=== PATIENT | female | born 1980 | race Hispanic/Latino ===

== ENCOUNTER 2019-03-31 11:53 | Emergency (ER) | payer MEDICARE ==
[2019-03-31 12:24] LABS: Basophils % (Auto) 0.6 % (0.0-1.8); Eosinophils # (Auto) 0.1 K/mm3 (0.0-0.4); Eosinophils % (Auto) 1.9 % (0.0-4.3); Hematocrit 33.2 % (30.3-42.9); Hemoglobin 10.7 gm/dl (10.1-14.3); Lymphocytes # (Auto) 2.2 K/mm3 (1.2-5.4); Lymphocytes % (Auto) 31.6 % (13.4-35.0); Mean Corpuscular HGB Conc 32 % (30-34); Monocytes # (Auto) 0.5 K/mm3 (0.0-0.8); Monocytes % (Auto) 7.2 % (0.0-7.3); Platelet Count 189 K/mm3 (140-440); Red Blood Count 4.76 M/mm3 (3.65-5.03); Red Cell Distribution Width 18.6 % (13.2-15.2)
[2019-03-31 12:33] LABS: Bilirubin,Urine NEG (Negative); Blood,Urine NEG (Negative); Color,Urine Straw (Yellow); Mucus,Urine FEW /HPF; Protein,Urine <15 mg/dL mg/dL (Negative); Urobilinogen,Urine < 2.0 mg/dL (<2.0); WBC,Urine < 1.0 /HPF (0.0-6.0)
[2019-03-31 12:34] LABS: Mean Corpuscular Volume 70 fl (79-97)
--- NOTE | 2019-03-31 12:37 | Emergency Department Report ---
HPI - General Chief Complaint: Abdominal Pain Time Seen by Provider: 03/31/19 12:23 - HPI HPI: Room 17 The patient is 39-year-old female presenting with chief complaint of no movement. The patient is currently at [facility] and states she is approximately 12 weeks gestational age. The patient states she has not felt baby move the past 2 days. Patient complains some pain in the right groin but denies vaginal bleeding Location: [See above] Duration: [See above] Quality: [See above] Severity: [See above] Modifying factors: [see above] Context: [see above] Mode of transportation: [not driving] ED Past Medical Hx - Past Medical History Previous Medical History?: Yes Hx Asthma: Yes Additional medical history: ptsd - Surgical History Past Surgical History?: Yes Additional Surgical History: abd fibroids - Family History Family history: no significant - Social History Smoking Status: Current Every Day Smoker Substance Use Type: Cocaine, Marijuana ED Review of Systems ROS: Stated complaint: POSS 5-12 WKS Other details as noted in HPI Constitutional: no symptoms reported Eyes: denies: eye pain ENT: denies: throat pain Respiratory: no symptoms reported Cardiovascular: denies: chest pain Endocrine: no symptoms reported Gastrointestinal: abdominal pain Genitourinary: denies: abnormal menses Musculoskeletal: denies: back pain Neurological: denies: headache Physical Exam - Physical Exam Vital Signs: Vital Signs 03/31/19 12:26 Temperature 98.6 F Pulse Rate 87 Respiratory 17 Rate Blood Pressure 106/69 [Right] O2 Sat by Pulse 100 Oximetry Physical Exam: GENERAL: The patient is well-developed well-nourished female lying on stretcher not appearing to be in acute distress. [] HEENT: Normocephalic. Atraumatic. Extraocular motions are intact. Patient has moist mucous membranes. NECK: Supple. Trachea midline CHEST/LUNGS: Clear to auscultation. There is no respiratory distress noted. HEART/CARDIOVASCULAR: Regular. There is no tachycardia. There is no gallop rub or murmur. ABDOMEN: Abdomen is soft, nontender. Patient has normal bowel sounds. SKIN: There is no rash. There is no edema. There is no diaphoresis. NEURO: The patient is awake, alert, and oriented. The patient is cooperative. The patient has normal speech MUSCULOSKELETAL: There is no evidence of acute injury. ED Course Vital Signs 03/31/19 12:26 Temperature 98.6 F Pulse Rate 87 Respiratory 17 Rate Blood Pressure 106/69 [Right] O2 Sat by Pulse 100 Oximetry ED Medical Decision Making - Lab Data Result diagrams: 03/31/19 12:14 03/31/19 12:14 Laboratory Tests 03/31/19 03/31/19 03/31/19 12:10 12:14 12:14 WBC 7.0 RBC 4.76 Hgb 10.7 Hct 33.2 MCV 70 L MCH 23 L MCHC 32 RDW 18.6 H Plt Count 189 Lymph % (Auto) 31.6 Wy[place] % (Auto) 7.2 Eos % (Auto) 1.9 Baso % (Auto) 0.6 Lymph # 2.2 Wythe # 0.5 Eos # 0.1 Baso # 0.0 Seg Neutrophils % 58.7 Seg Neutrophils # 4.1 Sodium 136 L Potassium 3.9 Chloride 100.9 Carbon Dioxide 25 Anion Gap 14 BUN 8 Creatinine 0.6 L Estimated GFR > 60 BUN/Creatinine Ratio 13 Glucose 78 Calcium 9.0 Total Bilirubin 0.20 AST 19 ALT 11 Alkaline Phosphatase 58 Total Protein 7.0 Albumin 3.7 L Albumin/Globulin Ratio 1.1 HCG, Qual HCG, Quant Urine Color Straw Urine Turbidity Clear Urine pH 7.0 Ur Specific Joshua 1.006 Urine Protein <15 mg/dl Urine Glucose (UA) Neg Urine Ketones Neg Urine Blood Neg Urine Nitrite Neg Urine Bilirubin Neg Urine Urobilinogen < 2.0 Ur Leukocyte Esterase Mod Urine WBC (Auto) < 1.0 Urine RBC (Auto) 3.0 U Epithel Cells (Auto) 3.0 Urine Mucus Few 03/31/19 03/31/19 12:14 12:14 WBC RBC Hgb Hct MCV MCH MCHC RDW Plt Count Lymph % (Auto) Wythe % (Auto) Eos % (Auto) Baso % (Auto) Lymph # Wythe # Eos # Baso # Seg Neutrophils % Seg Neutrophils # Sodium Potassium Chloride Carbon Dioxide Anion Gap BUN Creatinine Estimated GFR BUN/Creatinine Ratio Glucose Calcium Total Bilirubin AST ALT Alkaline Phosphatase Total Protein Albumin Albumin/Globulin Ratio HCG, Qual Positive HCG, Quant 71291 H Urine Color Urine Turbidity Urine pH Ur Specific Joshua Urine Protein Urine Glucose (UA) Urine Ketones Urine Blood Urine Nitrite Urine Bilirubin Urine Urobilinogen Ur Leukocyte Esterase Urine WBC (Auto) Urine RBC (Auto) U Epithel Cells (Auto) Urine Mucus - Radiology Data Radiology results: report reviewed (pelvic ultrasound), image reviewed (pelvic ultrasound) [facility] [address] [place] [address] Ultrasound Report Signed Patient: PALMA MCBRIDE MR#: [id number] 43 : 1980 Acct:[id number] Age/Sex: 39 / F ADM Date: 03/31/19 Loc: ED Attending Dr: Ordering Physician: MARY CHOWDHURY MD Date of Service: 03/31/19 Procedure(s): US OB >= 14 weeks Fetus Accession Number(s): [id number] cc: MARY WATKINS MD PROCEDURE: US OB >= 14 WEEKS FETUS TECHNIQUE: Ultrasound obstetrical transabdominal HISTORY: no movement felt COMPARISONS: FINDINGS: Single live intrauterine gestation present cardiac activity identified with heart rate of 1 61 bpm Cervical length 4.4 cm Placenta is anterior biometric measurements were obtained Biparietal diameter 14 weeks 0 days Head circumference 14 weeks 1 day. Abdominal circumference 14 weeks 1 day Femur length 13 weeks 3 days Based on today's exam, positive estimated gestational age 14 weeks 0 days with estimated date of delivery September 29, 2019 Estimated weight today 1 lb. 3 oz. 84 g Note is made of a 7.4 x 4.0 x 5.8 cm uterine fibroid IMPRESSION: Single live intrauterine gestation estimated at 14 weeks 0 days. This document is electronically signed by Adonay Ruiz MD., March 31 2019 05:40:30 PM ET Transcribed By: IRINEO Dictated By: ALBA RUIZ MD Electronically Authenticated By: ALBA RUIZ MD Signed Date/Time: 03/31/191741 DD/ 1644 TD/TT: 03/31/19 1657 - Differential Diagnosis demise, threatened , , Critical care attestation.: If time is entered above; I have spent that time in minutes in the direct care of this critically ill patient, excluding procedure time. ED Disposition Clinical Impression: Decreased movement, Disposition: DC/TX-65 PSY HOSP/PSY UNIT Is pt being admited?: No Does the pt Need Aspirin: No Condition: Stable Instructions: Abdominal Pain (ED) Additional Instructions: Return to the emergency department immediately should you develop worsening symptoms, fever, inability to tolerate food or liquid or any other concerns. Referrals: [facility]NY [facility] MD DAISY [Primary Care Provider] - 3-5 Days ALMAZ REES MD [Staff Physician] - 3-5 Days Time of Disposition: 18:27
[2019-03-31 12:49] LABS: Alanine Aminotransferase 11 units/L (7-56); Albumin 3.7 g/dL (3.9-5); BUN/Creatinine Ratio 13; Blood Urea Nitrogen 8 mg/dL (7-17); Hemolysis Index 3
--- NOTE | 2019-03-31 17:42 | Ultrasound Report ---
PROCEDURE: US OB >= 14 WEEKS FETUS TECHNIQUE: Ultrasound obstetrical transabdominal HISTORY: no movement felt COMPARISONS: FINDINGS: Single live intrauterine gestation present cardiac activity identified with heart rate of 1 61 bpm Cervical length 4.4 cm Placenta is anterior biometric measurements were obtained Biparietal diameter 14 weeks 0 days Head circumference 14 weeks 1 day. Abdominal circumference 14 weeks 1 day Femur length 13 weeks 3 days Based on today's exam, positive estimated gestational age 14 weeks 0 days with estimated date of deli very September 29, 2019 Estimated weight today 1 lb. 3 oz. 84 g Note is made of a 7.4 x 4.0 x 5.8 cm uterine fibroid IMPRESSION: Single live intrauterine gestation estimated at 14 weeks 0 days. This document is electronically signed by Adonay Portillo MD., March 31 2019 05:40:30 PM ET
[2019-03-31 18:29] VITALS: BP 117/65
== END 2019-03-31 18:58 ==
LOC: EEVIPCON 11:53 → ED 11:53
DX: O36.8190 Decreased fetal movements, unspecified trimester, not applicable or unspecified (principal); O99.511 Diseases of the respiratory system complicating pregnancy, first trimester; J45.909 Unspecified asthma, uncomplicated; O99.341 Other mental disorders complicating pregnancy, first trimester; F43.10 Post-traumatic stress disorder, unspecified; O99.331 Smoking (tobacco) complicating pregnancy, first trimester; F12.10 Cannabis abuse, uncomplicated; F14.10 Cocaine abuse, uncomplicated; Z3A.14 14 weeks gestation of pregnancy
CPT/HCPCS: 36415; 76805; 80053; 81001; 84702; 84703; 85025; 99284

== ENCOUNTER 2019-04-07 04:07 | Emergency (ER) | payer MEDICARE ==
--- NOTE | 2019-04-07 05:31 | Emergency Department Report ---
<WILLIAM EWING - Last Filed: 04/07/19 05:29> ED HPI - General Chief complaint: Abdominal Pain Stated complaint: VAGINAL BLEEDING/ABD PAIN Time Seen by Provider: 04/07/19 04:39 Source: patient, EMS Mode of arrival: Stretcher Limitations: No Limitations - History of Present Illness Initial comments: Patient is a 39-year-old female who is approximately 12 weeks who is presenting with vaginal bleeding. Patient states yesterday she started having some light spotting which is progressed to light bleeding. Patient states is no clots present with the bleeding. The patient has some crampy suprapubic abdominal discomfort. She denies dysuria or vaginal discharge. - Related Data Previous Rx's Medication Instructions Recorded Last Taken Type Gina Root [Gina] 250 mg PO QID PRN #30 capsule 04/07/19 Unknown Rx Multivitamin with Folic Acid [[facility]vs 400 mcg PO QDAY #30 tablet 04/07/19 Unknown Rx One Daily Essential Tablet] Vit-Fe Fumar-FA [ 1 tab PO QDAY #30 tablet 04/07/19 Unknown Rx Vitamin] Allergies Allergy/AdvReac Type Severity Reaction Status Date / Time divalproex sodium Allergy Unknown Verified 04/07/19 04:42 [From Depakote] haloperidol [From Haldol] Allergy Unknown Verified 04/07/19 04:42 hydroxyzine [From Vistaril] Allergy Unknown Verified 04/07/19 04:42 lorazepam [From Ativan] Allergy Unknown Verified 04/07/19 04:42 sertraline [From Zoloft] Allergy Unknown Verified 04/07/19 04:42 ED Review of Systems Comment: All other systems reviewed and negative ED Past Medical Hx - Past Medical History Hx Asthma: Yes Additional medical history: ptsd - Surgical History Additional Surgical History: abd fibroids - Social History Smoking Status: Current Every Day Smoker Substance Use Type: None - Medications Home Medications: Home Medications Medication Instructions Recorded Confirmed Last Taken Type Gina Root [Gina] 250 mg PO QID PRN #30 capsule 04/07/19 Unknown Rx Multivitamin with Folic Acid [[facility] 400 mcg PO QDAY #30 tablet 04/07/19 Unknown Rx One Daily Essential Tablet] Vit-Fe Fumar-FA [ 1 tab PO QDAY #30 tablet 04/07/19 Unknown Rx Vitamin] ED Physical Exam - General Limitations: No Limitations General appearance: alert, in no apparent distress - Head Head exam: Present: atraumatic, normocephalic - Eye Eye exam: Present: normal appearance - ENT ENT exam: Present: mucous membranes moist - Neck Neck exam: Present: normal inspection - Respiratory Respiratory exam: Present: normal lung sounds bilaterally. Absent: respiratory distress, wheezes, rales, rhonchi - Cardiovascular Cardiovascular Exam: Present: regular rate, normal rhythm. Absent: systolic murmur, diastolic murmur, rubs, gallop - GI/Abdominal GI/Abdominal exam: Present: soft, normal bowel sounds. Absent: distended, tenderness, guarding, rebound, rigid - Extremities Exam Extremities exam: Present: normal inspection - Back Exam Back exam: Present: normal inspection - Neurological Exam Neurological exam: Present: alert, oriented X3 - Psychiatric Psychiatric exam: Present: normal affect, normal mood - Skin Skin exam: Present: warm, dry, intact, normal color. Absent: rash ED Course - Reevaluation(s) Reevaluation #1: 04/07/19 05:30 Patient to have a beta Quant Rh and ultrasound performed. Patient be signed out to the next physician. ED Disposition Clinical Impression: Fibroid Qualifiers: Weeks of gestation: 14 weeks Qualified Code(s): Z3A.14 - 14 weeks gestation of Disposition: DC/TX-65 PSY HOSP/PSY UNIT Condition: Stable Additional Instructions: Take the vitamins as directed. Take the nausea medications as directed. Take the acetaminophen medication as needed for pain. Follow up as soon as possible with an outpatient [facility] physician to initiate outpatient care. Rest, avoid heavy lifting, and avoid sexual activity until cleared by an [facility] physician. Please make certain to avoid any medications which are not considered safe or appropriate in . Return to the emergency room right away with new, worsening or different symptoms. Referrals: [facility] [Provider Group] - 3-5 Days [facility] [Provider Group] - 3-5 Days [facility] [Provider Group] - 3-5 Days <GARETH BERMUDEZ - Last Filed: 04/07/19 09:12> ED Review of Systems ROS: Stated complaint: VAGINAL BLEEDING/ABD PAIN Other details as noted in HPI ED Course Vital Signs 04/07/19 04:33 Temperature 98.3 F Pulse Rate 79 Respiratory 20 Rate Blood Pressure 128/73 O2 Sat by Pulse 98 Oximetry - Reevaluation(s) Reevaluation #2: 04/07/19 09:10 Patient walking around without difficulty. Does not appear to be in any acute distress. Initial urinalysis contaminated, repeat clean catch urinalysis not consistent with urinary infection, or bacteria. Rh+, ultrasound does not demonstrate any emergent condition. Patient may continue current outpatient therapy, and follow up with an [facility] physician. ED Medical Decision Making - Lab Data Vital Signs - 24 hr 04/07/19 04:33 Temperature 98.3 F Pulse Rate 79 Respiratory 20 Rate Blood Pressure 128/73 O2 Sat by Pulse 98 Oximetry Labs 04/07/19 04/07/19 04/07/19 04:55 04:55 07:21 HCG, Quant 90166 H Urine Color Yellow Urine Turbidity Cloudy Urine pH 7.0 Ur Specific Carson 1.009 Urine Protein <15 mg/dl Urine Glucose (UA) Neg Urine Ketones Neg Urine Blood Sm Urine Nitrite Neg Urine Bilirubin Neg Urine Urobilinogen < 2.0 Ur Leukocyte Esterase Lg Urine WBC (Auto) 45.0 H Urine RBC (Auto) 6.0 U Epithel Cells (Auto) 19.0 H Urine Bacteria (Auto) 2+ Blood Type O POSITIVE 04/07/19 08:18 HCG, Quant Urine Color Colorless Urine Turbidity Clear Urine pH 7.0 Ur Specific Carson 1.002 L Urine Protein <15 mg/dl Urine Glucose (UA) Neg Urine Ketones Neg Urine Blood Neg Urine Nitrite Neg Urine Bilirubin Neg Urine Urobilinogen < 2.0 Ur Leukocyte Esterase Tr Urine WBC (Auto) < 1.0 Urine RBC (Auto) 1.0 U Epithel Cells (Auto) 1.0 Urine Bacteria (Auto) Blood Type - Radiology Data Radiology results: report reviewed, image reviewed [facility] [address] [place] [address] Ultrasound Report Signed Patient: PALMA MCBRIDE MR#: [id number] 43 : 1980 Acct:[id number] Age/Sex: 39 / F ADM Date: 04/07/19 Loc: ED Attending Dr: Ordering Physician: WILLIAM EWING MD Date of Service: 04/07/19 Procedure(s): US OB >= 14 weeks Fetus Accession Number(s): [id number] cc: WILLIAM EWING MD OB Ultrasound HISTORY: preg with abd pain/bleeding today. TECHNIQUE: Grayscale and color Doppler imaging performed. COMPARISON: Pelvic ultrasound from 03/31/2019 FINDINGS: There is a single viable intrauterine gestation which is cephalic in presentation. The overall EGA is 14 weeks and 6 days with an estimated delivery date of 09/30/2019. Evaluation of dates was derived from evaluating biparietal diameter, head circumference, abdominal circumference, and femoral length. The GINETTE is 4. Placenta is positioned anteriorly with no evidence of placenta previa. Heart rate is 159 bpm. Cervical length is 10 cm. Anatomic survey was not performed. Since the patient had pain in the left lower quadrant, the left ovary was evaluated and contains a 1.9 cm rounded structure which is likely a functional cyst. The right ovary was not visualized. There is also a posterior uterine body measuring 6.4 cm in maximal dimension. IMPRESSION: 1. Single viable intrauterine gestation as outlined above. 2. Large posterior uterine body fibroid. 3. Probable functional cyst within the left ovary. The right ovary was not visualized on this examination. Signer Name: Abhi Love MD Signed: 04/07/2019 8:52 AM Workstation Name: [id number] Transcribed By: JW Dictated By: Abhi Love MD Electronically Authenticated By: Abhi Love MD Signed Date/Time: 04/07/19 0852 Critical care attestation.: If time is entered above; I have spent that time in minutes in the direct care of this critically ill patient, excluding procedure time. ED Disposition Is pt being admited?: No Does the pt Need Aspirin: No
[2019-04-07 07:51] LABS: Bacteria,Urine 2+ /HPF (Negative); Bilirubin,Urine NEG (Negative); Blood,Urine SM (Negative); Color,Urine Yellow (Yellow); Protein,Urine <15 mg/dL mg/dL (Negative); Urobilinogen,Urine < 2.0 mg/dL (<2.0)
[2019-04-07 08:43] LABS: Bilirubin,Urine NEG (Negative); Blood,Urine NEG (Negative); Color,Urine Colorless (Yellow); Protein,Urine <15 mg/dL mg/dL (Negative); Urobilinogen,Urine < 2.0 mg/dL (<2.0); WBC,Urine < 1.0 /HPF (0.0-6.0)
--- NOTE | 2019-04-07 08:56 | Ultrasound Report ---
OB Ultrasound HISTORY: preg with abd pain/bleeding today. TECHNIQUE: Grayscale and color Doppler imaging performed. COMPARISON: Pelvic ultrasound from 03/31/2019 FINDINGS: There is a single viable intrauterine gestation which is cephalic in presentation. The over all EGA is 14 weeks and 6 days with an estimated delivery date of 09/30/2019. Evaluation of dates was derived from evaluating biparietal diameter, head circumference, abdominal circumference, and femora l length. The GINETTE is 4. Placenta is positioned anteriorly with no evidence of placenta previa. Heart rate is 159 bpm. Cervical length is 10 cm. Anatomic survey was not performed. Since the patient had p ain in the left lower quadrant, the left ovary was evaluated and contains a 1.9 cm rounded structure which is likely a functional cyst. The right ovary was not visualized. There is also a posterior uter ine body measuring 6.4 cm in maximal dimension. IMPRESSION: 1. Single viable intrauterine gestation as outlined above. 2. Large posterior uterine body fibroid. 3. Probable functional cyst within the left ovary. The right ovary was not visualized on this examina tion. Signer Name: Abhi Love MD Signed: 04/07/2019 8:52 AM Workstation Name: [id number]
[2019-04-07 09:26] VITALS: BP 102/75
== END 2019-04-07 10:09 ==
LOC: ED 04:07 → EEVIPCON 04:07 → ED 10:09
DX: O34.12 Maternal care for benign tumor of corpus uteri, second trimester (principal); O99.512 Diseases of the respiratory system complicating pregnancy, second trimester; J45.909 Unspecified asthma, uncomplicated; O99.332 Smoking (tobacco) complicating pregnancy, second trimester; F17.200 Nicotine dependence, unspecified, uncomplicated; Z79.899 Other long term (current) drug therapy; Z88.6 Allergy status to analgesic agent; Z88.8 Allergy status to other drugs, medicaments and biological substances; Z3A.14 14 weeks gestation of pregnancy
CPT/HCPCS: 36415; 76805; 81001; 84702; 86900; 86901; 87086; 99284

== ENCOUNTER 2019-04-15 10:53 | Emergency (ER) | payer MEDICARE ==
[2019-04-15 11:27] VITALS: BP 133/82
--- NOTE | 2019-04-15 12:27 | Emergency Department Report ---
ED Female HPI - General Chief complaint: Abdominal Pain Stated complaint: 17 WEEKS /CANT FEEL THE BABY MOVE Time Seen by Provider: 04/15/19 12:17 Source: patient Mode of arrival: Stretcher Limitations: No Limitations - History of Present Illness Initial comments: Patient reports abdominal pain and that she has not felt her baby move. Reports she does receive care. Denies trauma -: Gradual, week(s) (1 approximately) Location: suprapubic Radiation: non-radiating Severity: mild Severity scale (0 -10): 1 Quality: cramping Consistency: intermittent Improves with: none Worsens with: none Are you Now?: Yes Associated Symptoms: denies other symptoms - Related Data Previous Rx's Medication Instructions Recorded Last Taken Type Acetaminophen [Non-Aspirin Extra 500 mg PO Q6HR PRN #30 tablet 04/07/19 Unknown Rx Strength] Gina Root [Gina] 250 mg PO QID PRN #30 capsule 04/07/19 Unknown Rx Multivitamin with Folic Acid [[facility] 400 mcg PO QDAY #30 tablet 04/07/19 Unknown Rx One Daily Essential Tablet] Vit-Fe Fumar-FA [ 1 tab PO QDAY #30 tablet 04/07/19 Unknown Rx Vitamin] Allergies Allergy/AdvReac Type Severity Reaction Status Date / Time divalproex sodium Allergy Unknown Verified 04/07/19 04:42 [From Depakote] haloperidol [From Haldol] Allergy Unknown Verified 04/07/19 04:42 hydroxyzine [From Vistaril] Allergy Unknown Verified 04/07/19 04:42 lorazepam [From Ativan] Allergy Unknown Verified 04/07/19 04:42 sertraline [From Zoloft] Allergy Unknown Verified 04/07/19 04:42 ED Review of Systems ROS: Stated complaint: 17 WEEKS /CANT FEEL THE BABY MOVE Other details as noted in HPI Other: GENERAL: No weight change, fatigue, weakness, fever, chills, or night sweats SKIN: No changes in skin or hair, no itching, no rashes, no jaundice HEAD: No trauma, headache, or visual changes EYES: No blurriness, tearing, itching, acute visual loss, conjunctival discoloration, or scleral icterus EARS: No hearing loss, tinnitus, vertigo, or earache NOSE: No rhinorrhea, stuffiness, sneezing, itching, or epistaxis MOUTH: No bleeding gums, hoarseness, sore throat, or swelling CARDIAC: No new murmur, chest pain, palpitations, dyspnea on exertion, orthopnea, PND, or edema RESPIRATORY: No shortness of breath, wheeze, cough, sputum production, hemoptysis, pneumonia, asthma, bronchitis, or emphysema GI: Abdominal pain. No change in appetite, nausea, vomiting, dysphagia, change in bowel frequency, diarrhea, constipation, bleeding, hematemesis, melena, hematochezia URINARY: No frequency, urgency, polyuria, dysuria, hematuria, or incontinence GENITAL: Female: Reports no movement in 1 week approximately. No discharge, bleeding MUSCULOSKELETAL: No muscle weakness, joint stiffness, decrease in range of motion, redness, swelling NEUROLOGIC: No loss of sensation, numbness, tingling, tremors, weakness, paralysis, seizures HEMATOLOGIC: No anemia, easy bruising, bleeding, petechiae, or purpura ENDOCRINE: No hot or cold intolerance, sweating, polyuria, polydipsia or, polyphagia no thyroid problems PSYCHIATRIC: No change in mood, no anxiety, no depression ED Past Medical Hx - Past Medical History Previous Medical History?: Yes Hx Psychiatric Treatment: Yes (schziophrenia) Hx Asthma: Yes Additional medical history: ptsd - Surgical History Past Surgical History?: Yes Additional Surgical History: abd fibroids - Social History Smoking Status: Unknown if ever smoked - Medications Home Medications: Home Medications Medication Instructions Recorded Confirmed Last Taken Type Acetaminophen [Non-Aspirin Extra 500 mg PO Q6HR PRN #30 tablet 04/07/19 Unknown Rx Strength] Gina Root [Gina] 250 mg PO QID PRN #30 capsule 04/07/19 Unknown Rx Multivitamin with Folic Acid [[facility]vs 400 mcg PO QDAY #30 tablet 04/07/19 Unknown Rx One Daily Essential Tablet] Vit-Fe Fumar-FA [ 1 tab PO QDAY #30 tablet 04/07/19 Unknown Rx Vitamin] ED Physical Exam - General Limitations: No Limitations - Other Other exam information: GENERAL: Patient in no acute distress HEAD: Normocephalic, atraumatic EYES: PERRLA, EOM intact, no scleral icterus, no papilledema, no conjunctival hemorrhage, visual jung and acuity wnl, EARS: No tenderness, discharge, tympanic membrane wnl NOSE: No tenderness, discharge, sinus tenderness MOUTH: No erythema, bleeding, exudate HEART: Regular rate and rhythm, no murmur, S1-S2 are auscultated, pulses are symmetric LUNGS: No wheezing, rales, rhonchi, bilateral breath sounds ABDOMEN: Distended abdomen. Normal bowel sounds, no tenderness, no rebound, no guarding, no masses, no CVA tenderness MUSCULOSKELETAL: Normal joint range of motion, no redness, no swelling, no tenderness NEUROLOGIC: GCS 15, Alert and Oriented x3, Cranial nerves intact, normal sensation, normal strength, normal gait, no cerebellar deficit PSYCHIATRIC: No homicidal or suicidal ideation, no anxiety, no depression, no hallucinations SKIN: Skin is warm and dry, no wounds, no rashes ED Course Vital Signs 04/15/19 04/15/19 11:26 12:07 Temperature 98.7 F Pulse Rate 71 Respiratory 16 18 Rate Blood Pressure 133/82 [Right] O2 Sat by Pulse 95 Oximetry ED Medical Decision Making - Medical Decision Making ER nurse reports patient signed out AMA Critical care attestation.: If time is entered above; I have spent that time in minutes in the direct care of this critically ill patient, excluding procedure time. ED Disposition Clinical Impression: Abdominal pain affecting , Left against medical advice Disposition: LEFT AGAINST MED ADVICE Is pt being admited?: No Condition: Stable Instructions: Abdominal Pain (ED) Referrals: CARYN DE LA GARZA MD [Primary Care Provider] - 3-5 Days Forms: AMA Form
[2019-04-15 12:32] LABS: HCG Qualitative,Urine Positive (Negative)
== END 2019-04-15 12:48 | disposition left against medical advice (07) ==
LOC: ED 10:53
DX: O26.892 Other specified pregnancy related conditions, second trimester (principal); R10.2 Pelvic and perineal pain; O99.342 Other mental disorders complicating pregnancy, second trimester; F99 Mental disorder, not otherwise specified; Z3A.17 17 weeks gestation of pregnancy; Z79.899 Other long term (current) drug therapy; Z88.6 Allergy status to analgesic agent; Z88.8 Allergy status to other drugs, medicaments and biological substances
CPT/HCPCS: 81025; 99283